=== PATIENT | female | born 1995 | race Caucasian/White ===

== ENCOUNTER 2025-02-11 00:36 | Emergency (ER) | payer SELFPAY ==
[~2025-02-11] VITALS: Ht 180.3 cm; Wt 59.0 kg
[2025-02-11 00:36] VITALS: TEMP 98.2
[2025-02-11 01:27] VITALS: BP 129/88; O2SAT 98
== END 2025-02-11 01:27 | disposition home or self-care (01) ==
LOC: ER 00:54
DX: S60.122A Contusion of left index finger with damage to nail, initial encounter (principal); W23.0XXA Caught, crushed, jammed, or pinched between moving objects, initial encounter; Y93.89 Activity, other specified; Y92.89 Other specified places as the place of occurrence of the external cause; Y99.8 Other external cause status
CPT/HCPCS: 73140-TC